=== PATIENT | male | born 1990 | race Caucasian/White ===

== ENCOUNTER 2025-04-02 09:32 | Outpatient (AMB) | payer MEDICARE, SELFPAY ==
--- NOTE | 2025-04-02 09:36 | A.OFFPC_ITS ---
Vital Signs 04/02/25 09:37 Height 5 ft 10 in Weight 158 lb 6 oz BMI 22.7 BP 132/74 Blood Pressure Location Rt brachial Position Sitting Respiration 14 Pulse 79 Pulse Source Pulse Oximeter Temp 98.1 F Temp Source Oral Pulse Oximetry (%) 98 Oxygen Delivery Method Room Air Intake Visit Reasons: Seizure disorder Intake Note: New patient visit Nutritional Chemist Required: No Allergies No Known Allergies Allergy (Verified 04/02/25 09:39) Medication List - Last Reconciled 04/02/25 by BLANCA Rasmussen levetiracetam ER (Keppra XR) 2,500 mg PO DAILY Tobacco use date assessed: 04/02/25 Dental Screening Dental Screen Date: 04/02/25 Did you have a dental visit in the last 12 months?: Yes Did you have a dental problem in the last 6 months where you did not have access to dental care?: No Was dental information given to patient?: Patient has dentist HPI HPI Comments History of Present Illness Details 34-year-old male with a past medical his tory of epilepsy presents to [facility] care. His prior PCP retired. He is and works as a abad. He is originally from [place]. Epilepsy-followed by [facility] Neurology. Patient says he has been seizure-free since switching to extended release Keppra and cleared by Neurology to drive. The patient says he has always had eyes that were sensitive to light, and he is going to get his eyes examined and is looking into a prescription for glasses to help with this. Dental is up-to-date. He works as a abad. We have not received his records yet, but he says his immunizations are up-to-date. He declines the flu vaccine. Patient says in the past he was told his blood sugar was either low or high. He does not quite recall. Denies polyuria and polydipsia. Reports he has a very fast metabolism. ROS: Constitutional: No unexplained weight loss, fever, chills, fatigue or night sweats. Eyes: No vision changes, blurry vision, double vision, eye pain, eye redness, eye discharge. ENT: No hearing loss, sneezing, congestion, runny nose or sore throat. Respiratory: No shortness of breath, cough or sputum production. Cardiovascular: No chest pain, chest pressure or chest discomfort. No palpitations or pedal edema. Gastrointestinal: No anorexia, nausea, vomiting or diarrhea. No abdominal pain o r blood in stool. Genitourinary: No dysuria, hematuria, urinary frequency. Denies testicular pain, masses, swelling in the groin. Neurologic: No headache, dizziness, syncope, unilateral weakness, ataxia, numbness or tingling in the extremities. Musculoskeletal: No muscle pain, back pain, joint pain or swelling. Hematologic/Lymphatics: No bleeding or bruising. No painful lymph nodes. Skin: No rash or itching. Endocrine: No cold or heat intolerance. No polyuria or polydipsia. Psychiatric: No depression or anxiety. No SI/HI. Physical exam: Constitutional: Alert, in no distress. Head: Normocephalic. Eyes: Pupils are equal, round and reactive to light. Extraocular muscles intact. Ear, Nose and Throat: Canals clear. TMs normal. Normal nasal mucosa. No nasal discharge. No oral lesions. Neck: Supple, Full range of motion. No lymphadenopathy. No palpable thyroid masses. Respiratory: Clear to auscultation. Cardiovascular: S1 S2 regular. No murmurs. Gastrointestinal: Abdomen soft, non-tender, non-distended. Normal bowel sounds. No palpable masses. Genitourinary: Patient deferred. Patient does home exams. Neurologic: No focal neurological deficits. Symmetric patellar reflexes. Moves all extremities spontaneously. Skin: No rashes Musculoskeletal: No gross deformities. Normal range of motion. Extremities: Warm and well perfused. No clubbing, cyanosis or edema. Intact peripheral pulses bilaterally. 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 1. Little interest or pleasure in doing things: not at all 2. Feeling down, depressed, or hopeless: not at all 3. Trouble falling or staying asleep, or sleeping too much: not at all 4. Feeling tired or having little energy: not at all 5. Poor appetite or overeating: not at all 6. Feeling bad about yourself - or that you are a failure or have let yourself or your family down: not at all 7. Trouble concentrating on things, such as reading the newspaper or watching television: several days 8. Moving or speaking so slowly that other people could have noticed. Or the opposite - being so fidgety or restless that you have been moving around a lot more than usual: not at all 9. Thoughts that you would be better off or of hurting yourself in some way: not at all Total score: 1 Depression Screening Interpretation: Negative Depression Screening Done: Yes 42739 - PHQ-9 Billing: Yes Source: Developed by Drs. Krishna Whitley, Dalia Murillo, Enrico Will and colleagues, with an educational ivis from [employer]. Thrive Questionnaire Date Thrive assessed: 04/02/25 I am a: Patient What is your living situation today?: I have a steady place to live Within the past 12 months, did the food you bought not last and you didn't have the money to get more?: Never true Within the past 12 months, did you worry whether your food would run out before you got money to buy more?: Never true Do you have trouble paying for medicines?: No Do you have trouble getting transportation to medical appointments?: No Do you have trouble paying your heating and electricity bill?: No Do you have trouble taking care of your child, family member or friend?: No Do you have trouble with day-to-day activities such as bathing, preparing meals, shopping, managing finances, etc.?: No Are you currently unemployed and looking for a job?: No Are you interested in more education?: Yes Please select the resources that you would like help with: None Currently or been in a relationship where the following occur: No concerns reported THRIVE Score: 0 AUDIT C Alcohol Use Questionnaire (AUDIT-C) 1. How often do you have a drink containing alcohol?: Never 3. How often do you have six or more drinks on one occasion?: Never Total Score: 0 MICHELL-7 AMB Questionnaire MICHELL-7 Date MICHELL - 7 assessed: 04/02/25 Feeling nervous, anxious, or on edge: 0 = Not at all Not being able to stop or control worryin = Not at all Worrying too much about different things: 0 = Not at all Trouble relaxin = Several days Being so restless that it is hard to sit still: 1 = Several days Becoming easily annoyed or irritable: 0 = Not at all Feeling afraid as if something awful might happen: 0 = Not at all Total MICHELL-7 score (0-4 normal; 5-9 mild; 10-14 moderate; 15-21 severe): 2 Source: Developed by Drs. Krishna Whitley, Dalia Murillo, Enrico Will and colleagues, with an educational ivis from [employer]. Physical exam (Primary Care) Vital Signs: Last Vital Signs Temp 98.1 F 04/02/25 09:37 Pulse 79 04/02/25 09:37 Resp 14 04/02/25 09:37 BP 132/74 04/02/25 09:37 Pulse Ox 98 04/02/25 09:37 Oxygen Delivery Method Room Air 04/02/25 09:37 BMI result Body Mass Index 22.7 Tobacco/Smoking Status: Tobacco use Status Tobacco use date assessed 04/02/25 04/02/25 09:46 Patient Tobacco Use Status Former Tobacco user 04/02/25 09:46 e-Cigarette/Vaping Use Never Used 04/02/25 09:46 PHQ-9: PHQ-9 Score PHQ-9: Total score 1 04/02/25 09:46 Depression Screening Interpretation: Negative Thrive Assessment: Date of Thrive Assessment Date Thrive assessed 04/02/25 04/02/25 09:46 Currently or been in a relationship where the following occur: No concerns reported Coding Level of Care Code New Pt Prev Care 18-39yr([id number] Diagnoses Routine physical examination Z00.00 Screening for cardiovascular condition Z13.6 Nonintractable epilepsy without status epilepticus, unspecified epilepsy type G40.909 Epilepsy type: unspecified Intractability: not intractable Status epilepticus: without status epilepticus Additional Codes PHQ-9 - 40728 - PHQ-9 Billing: Yes ([id number]) Assessment & Plan Assessment & Plan (1) Routine physical examination: Code(s): Z00.00 - Encounter for general adult medical examination without abnormal findings Category: Medical Plan: Patient is seen today for a routine physical. As part of this visit we reviewed the following issues, which are considered and essential part of preventative health in this age group: - Testicular cancer screening, which includes self exam teaching - Screening for colon cancer- denies family history of colon cancer. Initial screening at age 45 years unless otherwise indicated. - Blood pressure screening annually - Cholesterol screening - Nutritional and exercise counseling - Counseling of injury prevention including fire prevention, smoke alarms and seat belt usage - Screening for depression - Education about skin cancer - Recommendations about immunizations - Recommendation of an eye exam - Screening for substance abuse - (2) Screening for cardiovascular condition: Code(s): Z13.6 - Encounter for screening for cardiovascular disorders Category: Medical (3) Epilepsy: Code(s): G40.909 - Epilepsy, unspecified, not intractable, without status epilepticus Category: Medical Qualifiers: Epilepsy type: unspecified Intractability: not intractable Status epilepticus: without status epilepticus Qualified Code(s): G40.909 - Epilepsy, unspecified, not intractable, without status epilepticus Plan: Patient is doing well on Keppra and managed by Neurology at [facility]. Plan Schedule physical in 1 year. Orders: Orders Complete Blood Count no Diff Today G40.909 - Epilepsy, unspecified, not intractable, without status epilepticus, Z00.00 - Encounter for general adult medical examination without abnormal findings, Z13.6 - Encounter for screening for cardiovascular disorders Lipid Panel Today E78.5 - Hyperlipidemia, unspecified, G40.909 - Epilepsy, unspecified, not intractable, without status epilepticus, Z00.00 - Encounter for general adult medical examination without abnormal findings, Z13.6 - Encounter for screening for cardiovascular disorders Comprehensive Met. Panel Today G40.909 - Epilepsy, unspecified, not intractable, without status epilepticus, Z00.00 - Encounter for general adult medical examination without abnormal findings, Z13.6 - Encounter for screening for cardiovascular disorders TSH reflex Free T4 Today G40.909 - Epilepsy, unspecified, not intractable, without status epilepticus, Z00.00 - Encounter for general adult medical examination without abnormal findings, Z13.6 - Encounter for screening for cardiovascular disorders Hemoglobin A1c Today R73.9 - Hyperglycemia, unspecified Levetiracetam Keppra Today G40.909 - Epilepsy, unspecified, not intractable, without status epilepticus
[2025-04-02 09:37] VITALS: BP 132/74; PULSE 79; RESP 14; TEMP 36.7; O2SAT 98; BMI 22.7
== END 2025-04-02 10:16 | disposition home or self-care (01) ==
LOC: HO.HMCFM 09:33
PROVIDERS: PCP Physician Assistant Medical; Visit Provider Physician Assistant Medical
DX: Z00.00 Encounter for general adult medical examination without abnormal findings (principal); Z13.6 Encounter for screening for cardiovascular disorders; G40.909 Epilepsy, unspecified, not intractable, without status epilepticus

== ENCOUNTER → 2025-04-02 09:32 | Outpatient (BNVA) | payer OTHER, SELFPAY | PROVIDERS: PCP Physician Assistant Medical; Visit Provider Physician Assistant Medical | DX: Z00.00 Encounter for general adult medical examination without abnormal findings (principal); G40.909 Epilepsy, unspecified, not intractable, without status epilepticus; Z13.31 Encounter for screening for depression; Z13.39 Encounter for screening examination for other mental health and behavioral disorders | CPT/HCPCS: 96127; 99385 ==